=== PATIENT | female | born 1940 | race Caucasian/White ===

== ENCOUNTER 2024-12-02 14:51 | Emergency (ER) | payer BC, MEDICARE ==
[~2024-12-02] VITALS: Ht 154.9 cm; Wt 52.2 kg
[2024-12-02 15:55] VITALS: PULSE 53; RESP 18; TEMP 98.5; O2SAT 97
[2024-12-02] MEDS ORDERED: CEFDINIR300 MG PO (16:30)
== END 2024-12-02 16:31 | disposition home or self-care (01) ==
LOC: ER 16:28
DX: R41.0 Disorientation, unspecified (principal); N39.0 Urinary tract infection, site not specified; F03.90 Unspecified dementia, unspecified severity, without behavioral disturbance, psychotic disturbance, mood disturbance, and anxiety; F32.A Depression, unspecified; Z85.038 Personal history of other malignant neoplasm of large intestine
CPT/HCPCS: 99282

== ENCOUNTER 2024-12-29 15:27 | Emergency (ER) | payer MEDICARE ==
[~2024-12-29] VITALS: Ht 154.9 cm; Wt 57.2 kg
[~2024-12-29 15:27] MED LIST: CEFDINIR300 MG PO
[2024-12-29 16:37] VITALS: PULSE 46; RESP 16; TEMP 97.3; O2SAT 96
== END 2024-12-29 16:37 | disposition home or self-care (01) ==
LOC: FSED 15:36
DX: G30.9 Alzheimer's disease, unspecified (principal); F02.80 Dementia in other diseases classified elsewhere, unspecified severity, without behavioral disturbance, psychotic disturbance, mood disturbance, and anxiety; I10 Essential (primary) hypertension; I25.10 Atherosclerotic heart disease of native coronary artery without angina pectoris; F32.A Depression, unspecified; Z95.1 Presence of aortocoronary bypass graft; Z85.038 Personal history of other malignant neoplasm of large intestine
CPT/HCPCS: 80053; 81003; 85025; 99283